=== PATIENT | female | born 1980 | race Caucasian/White ===

== ENCOUNTER 2017-08-18 14:53 | Inpatient (IN) | payer OTHER ==
[~2017-08-18] VITALS: Ht 170.2 cm; Wt 66.0 kg
[~2017-08-18 14:53] MED LIST: OXYC-360 PO; PREN0.01 PO
[2017-08-18 15:07] VITALS: BP 134/86; PULSE 80; RESP 16; TEMP 98.4; O2SAT 100
[2017-08-18] MEDS ORDERED: SODIUM CHLOR 0.9% 1000 ML INJ 1,000 ML IV SCH (15:30)
[2017-08-18] MEDS ORDERED: SODIUM CHLORIDE 0.9% FLUSH 10 ML FLUSH IV FLUSH PRN (15:30)
[2017-08-18] MEDS ORDERED: FAMOTIDINE 20 MG/2 ML VIAL IV PUSH ONE (15:30)
[2017-08-18] MEDS ORDERED: ONDANSETRON HCL 4 MG/2 ML VIAL IVP ONE (15:30)
--- NOTE | 2017-08-18 15:36 | PD ---
HPI Chief Complaint: Abdominal Pain Time Seen by Provider: 15:27 Travel History International Travel<30 days: No Contact w/Intl Traveler<30days: No Traveled to known affect area: No History of Present Illness HPI 36 years old female complains of right upper quadrant abdominal pain with nausea vomiting. Patient states that she has intermittent symptoms for the past several months. Patient states the pain is worse today. Patient denies any fever chills. Patient denies any coughing congestion. Patient denies any dysuria or frequency. Patient denies any vaginal discharge or bleeding. Patient denies any chance of being . [facility] Past Medical History Medical History: Denies Significant Hx Tetanus Vaccination: Unknown Influenza Vaccination: Yes ?: Not Past Surgical History Surgical History: No Previous Surgery Social History Alcohol Use: No Tobacco Use: No Substance Use: No Allergies-Medications (Allergen,Severity, Reaction): Coded Allergies: No Known Allergies (Verified , 08/18/17) Reported Meds & Prescriptions Reported Meds & Active Scripts Active No Active Prescriptions or Reported Medications Review of Systems General / Constitutional: No: Fever Eyes: No: Visual changes HENT: No: Headaches Cardiovascular: No: Chest Pain or Discomfort Respiratory: No: Shortness of Breath Gastrointestinal: Positive: Nausea, Vomiting, Abdominal Pain Genitourinary: No: Dysuria Musculoskeletal: No: Pain Skin: No Rash Neurologic: No: Weakness Psychiatric: No: Depression Endocrine: No: Polydipsia Hematologic/Lymphatic: No: Easy Bruising Physical Exam Narrative GENERAL: Well-nourished, well-developed patient. SKIN: Focused skin assessment warm/dry. HEAD: Normocephalic. EYES: No scleral icterus. No injection or drainage. NECK: Supple, trachea midline. No JVD or lymphadenopathy. CARDIOVASCULAR: Regular rate and rhythm without murmurs, gallops, or rubs. RESPIRATORY: Breath sounds equal bilaterally. No accessory muscle use. GASTROINTESTINAL: Abdomen soft, nondistended. Patient has moderate tenderness on palpation right upper quadrant of the abdomen. No rebound tenderness. No mass. MUSCULOSKELETAL: No cyanosis, or edema. BACK: Nontender without obvious deformity. No CVA tenderness. Neurologic exam normal. Data Data Last Documented VS Vital Signs Date Time Temp Pulse Resp B/P (MAP) Pulse Ox O2 Delivery O2 Flow Rate FiO2 08/18/17 15:07 98.4 80 16 134/86 (102) 100 Room Air Orders Orders Complete Blood Count With Diff (08/18/17 15:30) Comprehensive Metabolic Panel (08/18/17 15:30) Lipase (08/18/17 15:30) Prothrombin Time / Inr (Pt) (08/18/17 15:30) Act Partial Throm Time (Ptt) (08/18/17 15:30) Urinalysis - C+S If Indicated (08/18/17 15:30) Us Abdomen Gallbladder (08/18/17 ) Iv Access Insert/Monitor (08/18/17 15:30) Ecg Monitoring (08/18/17 15:30) Oximetry (08/18/17 15:30) Ondansetron Inj (Zofran Inj) (08/18/17 15:30) Sodium Chlor 0.9% 1000 Ml Inj (Ns 1000 M (08/18/17 15:30) Sodium Chloride 0.9% Flush (Ns Flush) (08/18/17 15:30) Famotidine Inj (Pepcid Inj) (08/18/17 15:30) Ed Urine Pregnancytest Poc (08/18/17 15:30) Morphine Inj (Morphine Inj) (08/18/17 16:00) Mri Mrcp W & W/O Contrast (08/18/17 ) Piperacil-Tazo 3.375 Gm Premix (Zosyn 3. (08/18/17 17:30) Labs Laboratory Tests Test 08/18/17 15:30 White Blood Count 11.2 TH/MM3 Red Blood Count 4.54 MIL/MM3 Hemoglobin 14.1 GM/DL Hematocrit 41.5 % Mean Corpuscular Volume 91.3 FL Mean Corpuscular Hemoglobin 31.0 PG Mean Corpuscular Hemoglobin Concent 34.0 % Red Cell Distribution Width 12.3 % Platelet Count 234 TH/MM3 Mean Platelet Volume 8.8 FL Neutrophils (%) (Auto) 80.7 % Lymphocytes (%) (Auto) 13.4 % Monocytes (%) (Auto) 4.6 % Eosinophils (%) (Auto) 0.8 % Basophils (%) (Auto) 0.5 % Neutrophils # (Auto) 9.1 TH/MM3 Lymphocytes # (Auto) 1.5 TH/MM3 Monocytes # (Auto) 0.5 TH/MM3 Eosinophils # (Auto) 0.1 TH/MM3 Basophils # (Auto) 0.1 TH/MM3 CBC Comment DIFF FINAL Differential Comment Prothrombin Time 10.3 SEC Prothromb Time International Ratio 0.9 RATIO Activated Partial Thromboplast Time 25.8 SEC Urine Color YELLOW Urine Turbidity CLEAR Urine pH 7.0 Urine Specific [place] 1.022 Urine Protein TRACE mg/dL Urine Glucose (UA) NEG mg/dL Urine Ketones 10 mg/dL Urine Occult Blood TRACE Urine Nitrite NEG Urine Bilirubin NEG Urine Urobilinogen LESS THAN 2.0 MG/DL Urine Leukocyte Esterase NEG Urine RBC 7 /hpf Urine WBC LESS THAN 1 /hpf Urine Squamous Epithelial Cells <1 /hpf Urine Bacteria RARE /hpf Urine Mucus FEW /lpf Microscopic Urinalysis Comment CULT NOT INDICATED Blood Urea Nitrogen 10 MG/DL Creatinine 0.72 MG/DL Random Glucose 87 MG/DL Total Protein 8.4 GM/DL Albumin 4.4 GM/DL Calcium Level 8.8 MG/DL Alkaline Phosphatase 84 U/L Aspartate Amino Transf (AST/SGOT) 13 U/L Alanine Aminotransferase (ALT/SGPT) 25 U/L Total Bilirubin 0.3 MG/DL Sodium Level 137 MEQ/L Potassium Level 3.7 MEQ/L Chloride Level 105 MEQ/L Carbon Dioxide Level 23.0 MEQ/L Anion Gap 9 MEQ/L Estimat Glomerular Filtration Rate 92 ML/MIN Lipase 112 U/L [facility] Medical Decision Making Medical Screen Exam Complete: Yes Emergency Medical Condition: Yes Interpretation(s) Last Impressions Gall Bladder Ultrasound 08/18/17 0000 Signed Impressions: Service Date/Time: Friday, August 18, 2017 15:31 - CONCLUSION: 1. Gallbladder sludge and cholelithiasis with slightly thickened gallbladder wall and mildly distended common bile duct. No definite choledocholithiasis or intrahepatic ductal dilatation. Differential considerations include ampullary dysfunction versus early partial distal CBD obstruction. Consider HIDA scan to evaluate for cystic and common bile duct patency as clinically indicated. 2. Very mild hepatomegaly. Nino Soares MD 1713 p.m. CBC WBC 11.2. 80 neutrophil. CMP within normal limit. UA negative. Differential Diagnosis Differential diagnosis including cholecystitis, cholangitis, pyelonephritis, nephrolithiasis, colitis. Narrative Course 36 years old female with right upper quadrant abdominal pain and nausea vomiting. Normal saline solution 1 25 cc an hour. Pepcid 20 mg IV. Morphine 1 mg IV. Zofran 4 mg IV. Zosyn 3.375 g IV given. MRCP pending. Diagnosis Primary Impression: Common bile duct obstruction Scripts No Active Prescriptions or Reported Meds Everardo Dover MD Aug 18, 2017 15:36
[2017-08-18 15:58] LABS: AUTOMATED NEUTROPHIL # 9.1 TH/MM3 (1.8-7.7); BASOPHIL # 0.1 TH/MM3 (0-0.2); BASOPHIL % 0.5 % (0.0-2.0); EOSINOPHIL # 0.1 TH/MM3 (0-0.4); EOSINOPHIL % 0.8 % (0.0-4.0); HEMATOCRIT 41.5 % (35.0-46.0); HEMO FLAGS DIFF FINAL; LYMPH % 13.4 % (9.0-44.0); LYMPHOCYTE # 1.5 TH/MM3 (1.0-4.8); MEAN CELL VOLUME 91.3 FL (80.0-100.0); MONO % 4.6 % (0.0-8.0); NEUT % 80.7 % (16.0-70.0); PLATELET COUNT 234 TH/MM3 (150-450); RED BLOOD COUNT 4.54 MIL/MM3 (4.00-5.30); RED CELL DISTRIBUTION WIDTH 12.3 % (11.6-17.2); WHITE BLOOD COUNT 11.2 TH/MM3 (4.0-11.0)
[2017-08-18] MEDS ORDERED: MORPHINE SULFATE 2 MG/ML INJ IV PUSH ONE (16:00)
[2017-08-18 16:03] LABS: BACTERIA, URINE RARE /hpf; BLOOD, URINE TRACE (NEG); COMMENT (UR) CULT NOT INDICATED; CULTURE IF INDICATED CULT NOT INDICATED; GLUCOSE,URINE NEG (NEG); KETONE, URINE 10 mg/dL (NEG); MUCUS URINE FEW /lpf (OCC); NITRITE,URINE NEG (NEG); SQUAMOUS EPITHELIAL CELL URINE <1 /hpf (0-5); URINE COLOR YELLOW (YELLW/STRAW)
[2017-08-18 16:04] LABS: APTT (PATIENT) 25.8 SEC (24.3-30.1); INTERNATIONAL NORMALIZED RATIO 0.9 RATIO; PROTHROMBIN TIME - PATIENT 10.3 SEC (9.8-11.6)
[2017-08-18 16:14] LABS: ALT (GPT) 25 U/L (10-53); ANION GAP 9 MEQ/L (5-15); AST (GOT) 13 U/L (15-37); BLOOD UREA NITROGEN 10 MG/DL (7-18); CHLORIDE 105 MEQ/L (98-107); GLOMERULAR FILTRATION RATE 92 ML/MIN (>89); POTASSIUM 3.7 MEQ/L (3.5-5.1); SODIUM (NA) 137 MEQ/L (136-145)
[2017-08-18 16:16] LABS: ALKALINE PHOSPHATASE 84 U/L (45-117); TOTAL BILIRUBIN ADULT 0.3 MG/DL (0.2-1.0)
--- NOTE | 2017-08-18 16:17 | RADRPT ---
EXAM DATE/TIME: 08/18/2017 15:31 [facility] COMPARISON: No previous studies available for comparison. INDICATIONS : Right upper quadrant pain. MEDICAL HISTORY : Nausea. Vomiting. Abdominal pain. SURGICAL HISTORY : None. ENCOUNTER: Initial ACUITY: 3 months PAIN SCORE: 7/10 LOCATION: Right upper quadrant MEASUREMENTS: LIVER: 17.1 cm length COMMON DUCT: 8 mm RIGHT KIDNEY: 11.3 x 5.5 x 4.7 cm FINDINGS: LIVER: Slightly enlarged measuring up to 17 cm. Normal echotexture without focal lesion or ductal dilatation. COMMON DUCT: Enlarged with no definite intraluminal mass or stone visualized. GALLBLADDER: Small bowel sludge and a single 1.6 cm non-mobile gallstone noted in the fundus of the gallbladder. There is subtle gallbladder wall thickening measuring 3 mm. No sonographic Laurence y sign or pericholecystic fluid. PANCREAS: The visualized portions are within normal limits. RIGHT KIDNEY: No evidence of hydronephrosis, stone, or mass. CONCLUSION: 1. Gallbladder sludge and cholelithiasis with slightly thickened gallbladder wall and mildly distende d common bile duct. No definite choledocholithiasis or intrahepatic ductal dilatation. Differential c onsiderations include ampullary dysfunction versus early partial distal CBD obstruction. Consider HID A scan to evaluate for cystic and common bile duct patency as clinically indicated. 2. Very mild hepatomegaly. Nino Soares MD on August 18, 2017 at 16:09 Board Certified Radiologist. This report was verified electronically.
[2017-08-18] MEDS ORDERED: PIPERACIL-TAZO 3.375 GM PREMIX 50 ML IV ONE (17:30)
[2017-08-18 17:53] VITALS: BP_SYST 102; BP_DIAS 62; BP_DIAS 64; PULSE 68; RESP 15; O2SAT 100; O2SAT 99
--- NOTE | 2017-08-18 17:59 | HHI.HP ---
[facility] Primary [facility] Physician No Primary Care Physician Admission Diagnosis common bile duct obstruction Diagnoses: (1) Common bile duct obstruction Diagnosis: Principal Chief Complaint: abdominal pain Travel History International Travel<30 Days: No Contact w/Intl Traveler <30 Da: No Traveled to Known Affected Are: No History of Present Illness patient is a 36 y/o female with no significant past medical history who presented to ER with abdominal pain. she says that she's had on and off abdominal pain for the past two months. pain is in epigastric/ RUQ. she says that she noticed that the pain was worse with ' the fast foods'. pain was moderate in intensity and associated with some nausea or vomiting. no reported fever. Review of Systems Constitutional: DENIES: Fever, Weight loss, Chills, Night Sweats Eyes: DENIES: Blurred vision, Diplopia, Vision loss, Double Vision Ears, nose, mouth, throat: DENIES: Tinnitus, Vertigo, Throat pain, Epistaxis Respiratory: DENIES: Apneas, Cough, Snoring, Wheezing, Hemoptysis, Sputum production, Shortness of breath Cardiovascular: DENIES: Chest pain, Palpitations, Syncope, Dyspnea on Exertion , PND, Lower Extremity Edema, Orthopnea, Claudication Gastrointestinal: COMPLAINS OF: Abdominal pain, Nausea, Vomiting, DENIES: Black stools, Bloody stools, Constipation, Diarrhea, Difficulty Swallowing, Anorexia Genitourinary: DENIES: Urinary frequency, Urgency, Hematuria, Dysuria Musculoskeletal: DENIES: Joint pain, Muscle aches, Stiffness, Joint Swelling Integumentary: DENIES: Rash Neurologic: DENIES: Abnormal gait, Headache, Localized weakness, Paresthesias, Seizures, Speech Problems, Tremor, Poor Balance Psychiatric: DENIES: Anxiety, Confusion, Mood changes, Depression, Hallucinations, Agitation, Suicidal Ideation, Homicidal Ideation, Delusions Past Family Social History Past Medical History not significant. Past Surgical History none. Reported Medications none reported. Allergies: Coded Allergies: No Known Allergies (Verified , 08/18/17) Active Ordered Medications Current Medications Ondansetron HCl (Zofran Inj) 4 mg ONCE ONCE IVP Last administered on 16:05; Start 08/18/17 at 15:30; Stop 08/18/17 at 15:31; Status DC Sodium Chloride 1,000 ml @ 125 mls/hr Q8H IV Last administered on 08/18/17 16 :04; Start 08/18/17 at 15:30; Stop 08/18/17 at 23:29 Sodium Chloride (NS Flush) 2 ml UNSCH PRN IV FLUSH FLUSH AFTER USING IV ACCESS Last administered on 08/18/17 16:05; Start 08/18/17 at 15:30 Famotidine (Pepcid Inj) 20 mg ONCE ONCE IV PUSH Last administered on 16:04; Start 08/18/17 at 15:30; Stop 08/18/17 at 15:32; Status DC Morphine Sulfate (Morphine Inj) 1 mg ONCE ONCE IV PUSH Last administered on 16:05; Start 08/18/17 at 16:00; Stop 08/18/17 at 16:01; Status DC Piperacillin Sod/ Tazobactam Sod 50 ml @ 100 mls/hr ONCE ONCE IV Last administered on 08/18/17 17:45; Start 08/18/17 at 17:30; Stop 08/18/17 at 17:59 Family History not relevant to this presentation. Social History no smoking or drinking. Physical Exam Vital Signs Vital Signs Date Time Temp Pulse Resp B/P (MAP) Pulse Ox O2 Delivery O2 Flow Rate FiO2 08/18/17 15:07 98.4 80 16 134/86 (102) 100 Room Air Physical Exam GENERAL: This is a well-nourished, well-developed patient, in no apparent distress. SKIN: No rashes, ecchymoses or lesions. Cool and dry. HEAD: Atraumatic. Normocephalic. No temporal or scalp tenderness. EYES: Pupils equal round and reactive. Extraocular motions intact. No scleral icterus. No injection or drainage. ENT: Nose without bleeding, purulent drainage or septal hematoma. Throat without erythema, tonsillar hypertrophy or exudate. Uvula midline. Airway patent. NECK: Trachea midline. No JVD or lymphadenopathy. Supple, nontender, no meningeal signs. CARDIOVASCULAR: Regular rate and rhythm without murmurs, gallops, or rubs. RESPIRATORY: Clear to auscultation. Breath sounds equal bilaterally. No wheezes , rales, or rhonchi. GASTROINTESTINAL: Abdomen soft, mild RUQ tenderness, nondistended. No hepato- splenomegaly, or palpable masses. No guarding. MUSCULOSKELETAL: Extremities without clubbing, cyanosis, or edema. No joint tenderness, effusion, or edema noted. No calf tenderness. Negative Homans sign bilaterally. NEUROLOGICAL: Awake and alert. Cranial nerves II through XII intact. Motor and sensory grossly within normal limits. Five out of 5 muscle strength in all muscle groups. Normal speech. Laboratory Laboratory Tests Test 08/18/17 15:30 White Blood Count 11.2 Red Blood Count 4.54 Hemoglobin 14.1 Hematocrit 41.5 Mean Corpuscular Volume 91.3 Mean Corpuscular Hemoglobin 31.0 Mean Corpuscular Hemoglobin Concent 34.0 Red Cell Distribution Width 12.3 Platelet Count 234 Mean Platelet Volume 8.8 Neutrophils (%) (Auto) 80.7 Lymphocytes (%) (Auto) 13.4 Monocytes (%) (Auto) 4.6 Eosinophils (%) (Auto) 0.8 Basophils (%) (Auto) 0.5 Neutrophils # (Auto) 9.1 Lymphocytes # (Auto) 1.5 Monocytes # (Auto) 0.5 Eosinophils # (Auto) 0.1 Basophils # (Auto) 0.1 CBC Comment DIFF FINAL Differential Comment Prothrombin Time 10.3 Prothromb Time International Ratio 0.9 Activated Partial Thromboplast Time 25.8 Urine Color YELLOW Urine Turbidity CLEAR Urine pH 7.0 Urine Specific [place] 1.022 Urine Protein TRACE Urine Glucose (UA) NEG Urine Ketones 10 Urine Occult Blood TRACE Urine Nitrite NEG Urine Bilirubin NEG Urine Urobilinogen LESS THAN 2.0 Urine Leukocyte Esterase NEG Urine RBC 7 Urine WBC LESS THAN 1 Urine Squamous Epithelial Cells <1 Urine Bacteria RARE Urine Mucus FEW Microscopic Urinalysis Comment CULT NOT INDICATED Blood Urea Nitrogen 10 Creatinine 0.72 Random Glucose 87 Total Protein 8.4 Albumin 4.4 Calcium Level 8.8 Alkaline Phosphatase 84 Aspartate Amino Transf (AST/SGOT) 13 Alanine Aminotransferase (ALT/SGPT) 25 Total Bilirubin 0.3 Sodium Level 137 Potassium Level 3.7 Chloride Level 105 Carbon Dioxide Level 23.0 Anion Gap 9 Estimat Glomerular Filtration Rate 92 Lipase 112 Result Diagram: 08/18/17 1530 08/18/17 1530 Imaging Last Impressions Gall Bladder Ultrasound 08/18/17 0000 Signed Impressions: Service Date/Time: Friday, August 18, 2017 15:31 - CONCLUSION: 1. Gallbladder sludge and cholelithiasis with slightly thickened gallbladder wall and mildly distended common bile duct. No definite choledocholithiasis or intrahepatic ductal dilatation. Differential considerations include ampullary dysfunction versus early partial distal CBD obstruction. Consider HIDA scan to evaluate for cystic and common bile duct patency as clinically indicated. 2. Very mild hepatomegaly. MD Law Girard VTE Risk Assessment Caprini VTE Risk Assessment: Mod/High Risk (score >= 2) (awaiting surgery evaluation.) Caprini Risk Assessment Model Point Value = 1 Point Value = 2 Point Value = 3 Point Value = 5 Age 41-60 Minor surgery BMI > 25 kg/m2 Swollen legs Varicose veins or History of unexplained or recurrent spontaneous Oral contraceptives or hormone replacement Sepsis (< 1 month) Serious lung disease, including pneumonia (< 1 month) Abnormal pulmonary function Acute myocardial infarction Congestive heart failure (< 1 month) History of inflammatory bowel disease Medical patient at bed rest Age 61-74 Arthroscopic surgery Major open surgery (> 45 min) Laparoscopic surgery (> 45 min) Malignancy Confined to bed (> 72 hours) Immobilizing plaster cast Central venous access Age >= 75 History of VTE Family history of VTE Factor V Leiden Prothrombin [id number] Lupus anticoagulant Anticardiolipin antibodies Elevated serum homocysteine Heparin-induced thrombocytopenia Other congenital or acquired thrombophilia Stroke (< 1 month) Elective arthroplasty Hip, pelvis, or leg fracture Acute spinal cord injury (< 1 month) Prophylaxis Regimen Total Risk Factor Score Risk Level Prophylaxis Regimen 0-1 Low Early ambulation 2 Moderate Order ONE of the following: *Sequential Compression Device (SCD) *Heparin 5000 units SQ BID 3-4 Higher Order ONE of the following medications: *Heparin 5000 units SQ TID *Enoxaparin/Lovenox 40 mg SQ daily (WT < 150 kg, CrCl > 30 mL/min) *Enoxaparin/Lovenox 30 mg SQ daily (WT < 150 kg, CrCl > 10-29 mL/min) *Enoxaparin/Lovenox 30 mg SQ BID (WT < 150 kg, CrCl > 30 mL/min) AND/OR *Sequential Compression Device (SCD) 5 or more Highest Order ONE of the following medications: *Heparin 5000 units SQ TID (Preferred with Epidurals) *Enoxaparin/Lovenox 40 mg SQ daily (WT < 150 kg, CrCl > 30 mL/min) *Enoxaparin/Lovenox 30 mg SQ daily (WT < 150 kg, CrCl > 10-29 mL/min) *Enoxaparin/Lovenox 30 mg SQ BID (WT < 150 kg, CrCl > 30 mL/min) AND *Sequential Compression Device (SCD) Assessment and Plan Assessment and Plan A/P - cholelithiasis with mildly distended common bile duct keep NPO for now and start on IV fluid- pain control and antiemetics as needed. will obtain MRCP and consult GI and general surgery. -DVT prophylaxis pending GI and surgery evaluation. Discussed Condition With ER physician and the patient. Physician Certification 2 Midnight Certification Type: Admission for Inpatient Services Order for Inpatient Services The services are ordered in accordance with Medicare regulations or non- Medicare payer requirements, as applicable. In the case of services not specified as inpatient-only, they are appropriately provided as inpatient services in accordance with the 2-midnight benchmark. Estimated LOS (days): 2 days is the estimated time the patient will need to remain in the hospital, assuming treatment plan goals are met and no additional complications. Post-Hospital Plan: Home Physician Certification 2 Midnight Certification Type: Admission for Inpatient Services Order for Inpatient Services The services are ordered in accordance with Medicare regulations or non- Medicare payer requirements, as applicable. In the case of services not specified as inpatient-only, they are appropriately provided as inpatient services in accordance with the 2-midnight benchmark. Estimated LOS (days): 2 days is the estimated time the patient will need to remain in the hospital, assuming treatment plan goals are met and no additional complications. Post-Hospital Plan: Home Jake Tamez MD Aug 18, 2017 17:59
[2017-08-18] MEDS ORDERED: ONDANSETRON HCL 4 MG/2 ML VIAL IV PUSH PRN (18:00)
[2017-08-18] MEDS ORDERED: HYDROmorphone HCL PF 1 MG/ML VIAL IV PUSH PRN (18:00)
[2017-08-18] MEDS ORDERED: MORPHINE SULFATE 2 MG/ML INJ IV PUSH PRN (18:45)
[2017-08-18] MEDS: SODIUM CHLOR 0.9% 1000 ML INJ 1,000 ML IV SCH (19:04)
--- NOTE | 2017-08-18 19:10 | RADRPT ---
EXAM DATE/TIME: 08/18/2017 18:06 [facility] COMPARISON: No previous studies available for comparison. INDICATIONS : Obstruction. Nausea and vomiting. MEDICAL HISTORY : None. SURGICAL HISTORY : None. ENCOUNTER: Subsequent ACUITY: 1 day PAIN SCORE: 7/10 LOCATION: Abdomen. TECHNIQUE: Multiplanar, multisequence magnetic resonance imaging of the abdomen was performed. High-resolution 3D dataset was utilized to reconstruct maximum-intensity projection (MIP) images. FINDINGS: The liver and spleen are normal in size and no focal defects are identified. There are multiple stone s within the gallbladder without wall thickening or pericholecystic fluid the largest measuring 15 mm . No common duct stones are identified. The pancreatic duct appears normal. The adrenal glands and ki dneys appear normal bilaterally. No hydronephrosis or mass lesions are identified. No abnormally enla rged lymph nodes are identified. CONCLUSION: 1. Cholelithiasis without common duct obstruction Josse Mac MD on August 18, 2017 at 18:59 Board Certified Radiologist. This report was verified electronically.
[2017-08-18 20:24] VITALS: BP 109/65; PULSE 69; RESP 18; TEMP 98.6; O2SAT 97
--- NOTE | 2017-08-18 20:43 | PD.CONS ---
HPI Service General surgery Consult Requested By Dr. Dover Reason for Consult Possible cholecystitis Primary Care Physician No Primary Care Physician History of Present Illness The patient is a 36-year-old female with a three-month history of recurring right upper quadrant pain who presented with more severe right upper quadrant pain since this morning. Her most recent episode before that was last weekend She had nausea and emesis. White blood count was noted to be 11,000 with normal LFTs. Ultrasound of the gallbladder showed sludge in size with mild wall thickening and mildly dilated common bile duct. MRCP was performed which showed gallstones but no choledocholithiasis. No previous abdominal surgeries. Review of Systems Constitutional: DENIES: Fever, Chills Eyes: DENIES: Eye inflammation, Eye pain Respiratory: DENIES: Cough, Shortness of breath Cardiovascular: DENIES: Chest pain, Palpitations Gastrointestinal: COMPLAINS OF: Abdominal pain, Nausea, Vomiting Musculoskeletal: DENIES: Stiffness, Joint Swelling Integumentary: DENIES: Pruritus, Rash Neurologic: DENIES: Localized weakness, Seizures Past Family Social History Past Medical History None Past Surgical History None Reported Medications Reported Meds & Active Scripts Active No Active Prescriptions or Reported Medications Allergies: Coded Allergies: No Known Allergies (Verified , 08/18/17) Active Ordered Medications Current Medications Medications (Trade) Dose Ordered Sig/Josselyn Route Start Time Stop Time Status Last Admin (NS Flush) 2 ml UNSCH PRN IV FLUSH 08/18/17 15:30 08/18/17 16:05 (Zofran Inj) 4 mg Q8H PRN IV PUSH 08/18/17 18:00 Sodium Chloride 1,000 ml @ 100 mls/hr Q10H IV 08/18/17 18:00 08/18/17 19:04 (Dilaudid Pf Inj) 0.5 mg Q4H PRN IV PUSH 08/18/17 18:00 (Morphine Inj) 1 mg Q3H PRN IV PUSH 08/18/17 18:45 Family History Noncontributory Social History No alcohol tobacco or drug use. Physical Exam Vital Signs Vital Signs Date Time Temp Pulse Resp B/P (MAP) Pulse Ox O2 Delivery O2 Flow Rate FiO2 08/18/17 20:24 98.6 69 18 109/65 (80) 97 08/18/17 17:53 68 15 102/64 (77) 99 Room Air 08/18/17 17:53 68 15 102/62 (75) 100 Room Air 08/18/17 15:07 98.4 80 16 134/86 (102) 100 Room Air Physical Exam GENERAL: Awake and alert. No acute distress. Cooperative. HEAD: Normocephalic. Atraumatic. EYES: Pupils equal round and reactive to light bilaterally. No scleral icterus. ENT: Moist oral mucosa. NECK: Trachea midline. CHEST: Lungs clear to auscultation bilaterally with no wheezing or rhonchi. No respiratory distress. CARDIOVASCULAR: Regular rate and rhythm. ABDOMEN: Soft, nondistended. No previous scars. Moderate right upper quadrant tenderness to palpation. Negative Jackson sign. EXTREMITIES: No cyanosis or edema. SKIN: Warm, dry, nonjaundiced. Laboratory Laboratory Tests Test 08/18/17 15:30 White Blood Count 11.2 Red Blood Count 4.54 Hemoglobin 14.1 Hematocrit 41.5 Mean Corpuscular Volume 91.3 Mean Corpuscular Hemoglobin 31.0 Mean Corpuscular Hemoglobin Concent 34.0 Red Cell Distribution Width 12.3 Platelet Count 234 Mean Platelet Volume 8.8 Neutrophils (%) (Auto) 80.7 Lymphocytes (%) (Auto) 13.4 Monocytes (%) (Auto) 4.6 Eosinophils (%) (Auto) 0.8 Basophils (%) (Auto) 0.5 Neutrophils # (Auto) 9.1 Lymphocytes # (Auto) 1.5 Monocytes # (Auto) 0.5 Eosinophils # (Auto) 0.1 Basophils # (Auto) 0.1 CBC Comment DIFF FINAL Differential Comment Prothrombin Time 10.3 Prothromb Time International Ratio 0.9 Activated Partial Thromboplast Time 25.8 Urine Color YELLOW Urine Turbidity CLEAR Urine pH 7.0 Urine Specific [place] 1.022 Urine Protein TRACE Urine Glucose (UA) NEG Urine Ketones 10 Urine Occult Blood TRACE Urine Nitrite NEG Urine Bilirubin NEG Urine Urobilinogen LESS THAN 2.0 Urine Leukocyte Esterase NEG Urine RBC 7 Urine WBC LESS THAN 1 Urine Squamous Epithelial Cells <1 Urine Bacteria RARE Urine Mucus FEW Microscopic Urinalysis Comment CULT NOT INDICATED Blood Urea Nitrogen 10 Creatinine 0.72 Random Glucose 87 Total Protein 8.4 Albumin 4.4 Calcium Level 8.8 Alkaline Phosphatase 84 Aspartate Amino Transf (AST/SGOT) 13 Alanine Aminotransferase (ALT/SGPT) 25 Total Bilirubin 0.3 Sodium Level 137 Potassium Level 3.7 Chloride Level 105 Carbon Dioxide Level 23.0 Anion Gap 9 Estimat Glomerular Filtration Rate 92 Lipase 112 Result Diagram: 08/18/17 1530 08/18/17 1530 Imaging Last Impressions Gall Bladder Ultrasound 08/18/17 0000 Signed Impressions: Service Date/Time: Friday, August 18, 2017 15:31 - CONCLUSION: 1. Gallbladder sludge and cholelithiasis with slightly thickened gallbladder wall and mildly distended common bile duct. No definite choledocholithiasis or intrahepatic ductal dilatation. Differential considerations include ampullary dysfunction versus early partial distal CBD obstruction. Consider HIDA scan to evaluate for cystic and common bile duct patency as clinically indicated. 2. Very mild hepatomegaly. Nino Soares MD Assessment and Plan Assessment and Plan 36-year-old female with multiple episodes of recurring biliary colic now with biliary colic versus acute cholecystitis. I recommend to proceed to the operating room tomorrow for laparoscopic possible open cholecystectomy, possible IOC. Discussed risks benefits and details of procedure with the patient and her and she desires to proceed. Tesfaye Ruiz MD Aug 18, 2017 20:43
[2017-08-19 00:26] VITALS: BP 92/63; PULSE 74; RESP 18; TEMP 98.1; O2SAT 97
[2017-08-19] MEDS: PIPERACIL-TAZO 3.375 GM PREMIX 50 ML IV SCH ×3 (00:31→11:57)
[2017-08-19] MEDS ORDERED: LACTATED RINGER'S 1000 ML IV PRN (01:30)
[2017-08-19] MEDS ORDERED: CHLORHEXIDINE GLUCONATE 2 % 1 PACK (2 CLOTHS) TOPICAL PRN (01:30)
[2017-08-19] MEDS: SODIUM CHLOR 0.9% 1000 ML INJ 1,000 ML IV SCH ×3 (04:00→17:00)
[2017-08-19 04:53] VITALS: BP 96/52; PULSE 66; RESP 18; TEMP 98.6; O2SAT 96
[2017-08-19 08:00] VITALS: BP 90/55; PULSE 60; RESP 17; TEMP 98.4; O2SAT 97
--- NOTE | 2017-08-19 08:22 | HHI.PR ---
Subjective Remarks in no distress. abdominal pain is better. no nausea/vomiting. no fever. awaiting surgery. d/w the RN . Objective Vitals Vital Signs Date Time Temp Pulse Resp B/P (MAP) Pulse Ox O2 Delivery O2 Flow Rate FiO2 08/19/17 04:53 98.6 66 18 96/52 (67) 96 08/19/17 02:34 18 08/19/17 00:26 98.1 74 18 92/63 (73) 97 08/18/17 20:24 98.6 69 18 109/65 (80) 97 08/18/17 17:53 68 15 102/64 (77) 99 Room Air 08/18/17 17:53 68 15 102/62 (75) 100 Room Air 08/18/17 15:07 98.4 80 16 134/86 (102) 100 Room Air I/O 08/18/17 08/18/17 08/18/17 08/19/17 08/19/17 08/19/17 06:59 14:59 22:59 06:59 14:59 22:59 Intake Total 1050 ml 1100 ml Balance 1050 ml 1100 ml Intake IV Total 1050 ml 1100 ml # Voids 3 Result Diagram: 08/18/17 1530 08/18/17 1530 Imaging Last Impressions Gall Bladder Ultrasound 08/18/17 0000 Signed Impressions: Service Date/Time: Friday, August 18, 2017 15:31 - CONCLUSION: 1. Gallbladder sludge and cholelithiasis with slightly thickened gallbladder wall and mildly distended common bile duct. No definite choledocholithiasis or intrahepatic ductal dilatation. Differential considerations include ampullary dysfunction versus early partial distal CBD obstruction. Consider HIDA scan to evaluate for cystic and common bile duct patency as clinically indicated. 2. Very mild hepatomegaly. Nino Soares MD Cholangiopancreatography MRI 08/18/17 0000 Signed Impressions: Service Date/Time: Friday, August 18, 2017 18:06 - CONCLUSION: 1. Cholelithiasis without common duct obstruction Josse Mac MD Objective Remarks GENERAL: This is a well-nourished, well-developed patient, in no apparent distress. CARDIOVASCULAR: Regular rate and regular rhythm without murmurs, gallops, or rubs. RESPIRATORY: Clear to auscultation. Breath sounds equal bilaterally. No wheezes , rales, or rhonchi. GASTROINTESTINAL: Abdomen soft, minimal RUQ tenderness, nondistended. Normal, active bowel sounds MUSCULOSKELETAL: Extremities without clubbing, cyanosis, or edema. NEURO: Alert & Oriented x4 to person, place, time, situation. Moves all ext x4 Medications and IVs Current Medications Ondansetron HCl (Zofran Inj) 4 mg ONCE ONCE IVP Last administered on 16:05; Start 08/18/17 at 15:30; Stop 08/18/17 at 15:31; Status DC Sodium Chloride 1,000 ml @ 125 mls/hr Q8H IV Last administered on 08/18/17 16 :04; Start 08/18/17 at 15:30; Stop 08/18/17 at 18:10; Status DC Sodium Chloride (NS Flush) 2 ml UNSCH PRN IV FLUSH FLUSH AFTER USING IV ACCESS Last administered on 08/18/17 16:05; Start 08/18/17 at 15:30 Famotidine (Pepcid Inj) 20 mg ONCE ONCE IV PUSH Last administered on 16:04; Start 08/18/17 at 15:30; Stop 08/18/17 at 15:32; Status DC Morphine Sulfate (Morphine Inj) 1 mg ONCE ONCE IV PUSH Last administered on 16:05; Start 08/18/17 at 16:00; Stop 08/18/17 at 16:01; Status DC Piperacillin Sod/ Tazobactam Sod 50 ml @ 100 mls/hr ONCE ONCE IV Last administered on 08/18/17 17:45; Start 08/18/17 at 17:30; Stop 08/18/17 at 17:59 ; Status DC Ondansetron HCl (Zofran Inj) 4 mg Q8H PRN IV PUSH NAUSEA; Start 08/18/17 at 18: 00 Sodium Chloride 1,000 ml @ 100 mls/hr Q10H IV Last administered on 08/19/17 04:00; Start 08/18/17 at 18:00 Hydromorphone HCl (Dilaudid Pf Inj) 0.5 mg Q4H PRN IV PUSH PAIN 1-10; Start at 18:00 Morphine Sulfate (Morphine Inj) 1 mg Q3H PRN IV PUSH PAIN Last administered on 08/19/17 02:29; Start 08/18/17 at 18:45 Piperacillin Sod/ Tazobactam Sod 50 ml @ 100 mls/hr Q6H IV Last administered on 08/19/17 05:56; Start 08/19/17 at 00:00 Lactated Ringer's 1,000 ml @ 30 mls/hr Q24H PRN IV SEE LABEL COMMENTS; Start 08/19/17 at 01:30; Stop 08/22/17 at 01:29 Chlorhexidine Gluconate (Chlorhexidine 2% Cloth) 3 pack PATIENT MONITOR PRN TOPICAL SEE LABEL COMMENTS; Start 08/19/17 at 01:30; Stop 08/22/17 at 01:29 A/P Problem List: (1) Common bile duct obstruction ICD Code: K83.1 - Obstruction of bile duct Status: Acute Assessment and Plan A/P - cholelithiasis- MRCP with no common duct obstruction. continue pain control and antiemetics as needed. surgery and GI consulted. plan for cholecystectomy today. -DVT prophylaxis pending surgical intervention. Discharge Planning when cleared by surgery- for cholecystectomy today. Jake Tamez MD Aug 19, 2017 08:22
--- NOTE | 2017-08-19 09:01 | PD.CONS ---
HPI History of Present Illness This is a 36 year old female who has been having intermittent abdominal pain for the past several months. Initially, her episodes were infrequent and usually occurred when she was on vacation, eating more fatty foods than normal. Usually, she can induce vomiting and her symptoms would completely resolve. However, the episodes have gradually been increasing in intensity and frequency. The night before last, she had a steak dinner with grilled vegetables. She woke up early yesterday morning with severe RUQ pain- a constant dull ache with associated bloating. She had several episodes of vomiting, but did not have any relief with her abdominal pain. She denies any fevers or chills, jaundice. Usually she will have loose stool associated with her RUQ pain, but states she did not have it this time. Gallbladder US (08/18/17 )----> Gallbladder sludge and cholelithiasis with slightly thickened gallbladder wall and mildly distended common bjile duct. No definite choledocholithiasis or intrahepatic ductal dilatation. Differential considerations include ampullary dysfunction versus early partial distal CBD obstruction. Consider HIDA scan to evaluate for cystic and common bile duct patency as clinically indicated. Very mild hepatomegaly. LFTs are normal. GI was consulted for further evaluation. MRCP (08/18/17)----> Cholelithiasis without common duct obstruction. (Sangeetha Espinal) PFSH Past Medical History Denies Past Surgical History Denies (Sangeetha Espinal) Coded Allergies: No Known Allergies (Verified , 08/18/17) Medications Allergies Coded Allergies Type Severity Reaction Last Updated Verified No Known Allergies 08/18/17 Yes Active Scripts Medications Dose Route/Sig Max Daily Dose Days Date Category No Active Prescriptions or Reported Medications Rx Family History Noncontributory Social History Quit smoking 2 years ago Occasional ETOH (Sangeetha Espinal) Review of Systems Constitutional: DENIES: Fatigue, Fever, Weight loss, Chills Respiratory: DENIES: Cough Cardiovascular: DENIES: Chest pain Gastrointestinal: COMPLAINS OF: Abdominal pain, Nausea, Vomiting, DENIES: Black stools, Bloody stools, Constipation, Diarrhea, Difficulty Swallowing, Anorexia, Swelling of Abdomen, Hematemesis Musculoskeletal: DENIES: Back pain Integumentary: DENIES: Rash, Jaundice Hematologic/lymphatic: DENIES: Bruising Neurologic: DENIES: Headache Psychiatric: DENIES: Confusion (Sangeetha Espinal) GI Exam Vitals I&O Vital Signs Date Time Temp Pulse Resp B/P (MAP) Pulse Ox O2 Delivery O2 Flow Rate FiO2 08/19/17 08:00 98.4 60 17 90/55 (67) 97 08/19/17 04:53 98.6 66 18 96/52 (67) 96 08/19/17 02:34 18 08/19/17 00:26 98.1 74 18 92/63 (73) 97 08/18/17 20:24 98.6 69 18 109/65 (80) 97 08/18/17 17:53 68 15 102/64 (77) 99 Room Air 08/18/17 17:53 68 15 102/62 (75) 100 Room Air 08/18/17 15:07 98.4 80 16 134/86 (102) 100 Room Air I/O 08/18/17 08/18/17 08/18/17 08/19/17 08/19/17 08/19/17 07:00 15:00 23:00 07:00 15:00 23:00 Intake Total 1050 ml 1100 ml Balance 1050 ml 1100 ml Intake IV Total 1050 ml 1100 ml # Voids 3 Imaging Last Impressions Gall Bladder Ultrasound 08/18/17 0000 Signed Impressions: Service Date/Time: Friday, August 18, 2017 15:31 - CONCLUSION: 1. Gallbladder sludge and cholelithiasis with slightly thickened gallbladder wall and mildly distended common bile duct. No definite choledocholithiasis or intrahepatic ductal dilatation. Differential considerations include ampullary dysfunction versus early partial distal CBD obstruction. Consider HIDA scan to evaluate for cystic and common bile duct patency as clinically indicated. 2. Very mild hepatomegaly. Nino Soares MD Cholangiopancreatography MRI 08/18/17 0000 Signed Impressions: Service Date/Time: Friday, August 18, 2017 18:06 - CONCLUSION: 1. Cholelithiasis without common duct obstruction Josse Mac MD Laboratory Test 08/18/17 15:30 White Blood Count 11.2 TH/MM3 Red Blood Count 4.54 MIL/MM3 Hemoglobin 14.1 GM/DL Hematocrit 41.5 % Mean Corpuscular Volume 91.3 FL Mean Corpuscular Hemoglobin 31.0 PG Mean Corpuscular Hemoglobin Concent 34.0 % Red Cell Distribution Width 12.3 % Platelet Count 234 TH/MM3 Mean Platelet Volume 8.8 FL Neutrophils (%) (Auto) 80.7 % Lymphocytes (%) (Auto) 13.4 % Monocytes (%) (Auto) 4.6 % Eosinophils (%) (Auto) 0.8 % Basophils (%) (Auto) 0.5 % Neutrophils # (Auto) 9.1 TH/MM3 Lymphocytes # (Auto) 1.5 TH/MM3 Monocytes # (Auto) 0.5 TH/MM3 Eosinophils # (Auto) 0.1 TH/MM3 Basophils # (Auto) 0.1 TH/MM3 CBC Comment DIFF FINAL Differential Comment Prothrombin Time 10.3 SEC Prothromb Time International Ratio 0.9 RATIO Activated Partial Thromboplast Time 25.8 SEC Urine Color YELLOW Urine Turbidity CLEAR Urine pH 7.0 Urine Specific [place] 1.022 Urine Protein TRACE mg/dL Urine Glucose (UA) NEG mg/dL Urine Ketones 10 mg/dL Urine Occult Blood TRACE Urine Nitrite NEG Urine Bilirubin NEG Urine Urobilinogen LESS THAN 2.0 MG/DL Urine Leukocyte Esterase NEG Urine RBC 7 /hpf Urine WBC LESS THAN 1 /hpf Urine Squamous Epithelial Cells <1 /hpf Urine Bacteria RARE /hpf Urine Mucus FEW /lpf Microscopic Urinalysis Comment CULT NOT INDICATED Blood Urea Nitrogen 10 MG/DL Creatinine 0.72 MG/DL Random Glucose 87 MG/DL Total Protein 8.4 GM/DL Albumin 4.4 GM/DL Calcium Level 8.8 MG/DL Alkaline Phosphatase 84 U/L Aspartate Amino Transf (AST/SGOT) 13 U/L Alanine Aminotransferase (ALT/SGPT) 25 U/L Total Bilirubin 0.3 MG/DL Sodium Level 137 MEQ/L Potassium Level 3.7 MEQ/L Chloride Level 105 MEQ/L Carbon Dioxide Level 23.0 MEQ/L Anion Gap 9 MEQ/L Estimat Glomerular Filtration Rate 92 ML/MIN Lipase 112 U/L Physical Examination HEENT: Normocephalic; atraumatic; no jaundice. CHEST: CTA CARDIAC: RRR ABDOMEN: Soft, nondistended, RUQ tenderness, mild; no hepatosplenomegaly; bowel sounds are present in all four quadrants. EXTREMITIES: No clubbing, cyanosis, or edema. SKIN: Normal; no rash; no jaundice. [employer]: No focal deficits; alert and oriented times three. (Sangeetha Espinal) Assessment and Plan Plan ASSESSMENT: - Recurrent biliary colic, cholelithiasis, and gb sludge. Pt with recurrent episodes over past few months. Lastest episode more severe and woke her up from her sleep early yesterday morning. WBC 11.2. GS following, on schedule for lap. kiera at 11am NPO. Zosyn. - Questionable partial distal CBD obstruction on US. Gallbladder US (08/18/17)--- -> Gallbladder sludge and cholelithiasis with slightly thickened gallbladder wall and mildly distended common bjile duct. No definite choledocholithiasis or intrahepatic ductal dilatation. Differential considerations include ampullary dysfunction versus early partial distal CBD obstruction. Consider HIDA scan to evaluate for cystic and common bile duct patency as clinically indicated. Very mild hepatomegaly. LFTs are normal. GI was consulted for further evaluation. MRCP (08/18/17)----> Cholelithiasis without common duct obstruction. LFTs unremarkable. Pain improved. No evidence of CBD obstruction, okay to proceed with lap. Kiera. - Leukocytosis, mild. Zosyn PLAN: - NPO - Zosyn - No indication of CBD obstruction on MRCP, okay to proceed with lap. kiera. No need for ERCP - GS following, on schedule for lap. kiera at 11am - GI will sign off, please reconsult as needed - Pt seen and examined by Dr. 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 MRCP showed no cholidocholithiasis. CHolecystectomy today. GI fu as needed. Thankyou (Nik Valenzuela MD) Sangeetha Espinal Aug 19, 2017 09:01 Nik Valenzuela MD Aug 19, 2017 12:52
[2017-08-19 12:00] VITALS: BP 98/56; PULSE 60; RESP 17; TEMP 97.4; O2SAT 99
[2017-08-19] MEDS ORDERED: LACTATED RINGER'S 1000 ML INJ 1,000 ML IV ONE (12:00)
[2017-08-19] MEDS ORDERED: NEOSTIGMINE 3 MG/3 ML SYR IV ONE (12:00)
[2017-08-19] MEDS ORDERED: GLYCOPYRROLATE 1 MG/5 ML SYRINGE IV PUSH ONE (12:00)
[2017-08-19] MEDS ORDERED: PROPOFOL 200 MG/20 ML AMP IV ONE (12:00)
[2017-08-19] MEDS ORDERED: ONDANSETRON HCL 4 MG/2 ML VIAL IV PUSH ONE (12:00)
[2017-08-19] MEDS ORDERED: LIDOCAINE HCL 1% PF 5 ML AMPULE OTHER ONE (12:00)
[2017-08-19] MEDS ORDERED: ROCURONIUM INJ 50 MG/5 ML SYRINGE IV PUSH ONE (12:00)
[2017-08-19] MEDS ORDERED: MIDAZOLAM HCL 2 MG/2 ML VIAL IV ONE (12:00)
[2017-08-19] MEDS ORDERED: DEXAMETHASONE SOD PHOS 4 MG/ML VIAL IV ONE (12:00)
[2017-08-19] MEDS ORDERED: BUPIVACAINE/EPINEPHRINE 0.25% 50 ML VIAL ONE (14:41)
[2017-08-19] MEDS ORDERED: FAMOTIDINE 20 MG/2 ML VIAL ONE (15:00)
[2017-08-19] MEDS ORDERED: ACETAMINOPHEN 1000 MG/100 ML 100 ML IV ONE (15:01)
[2017-08-19] MEDS ORDERED: NORC5TAB PO (16:20)
--- NOTE | 2017-08-19 16:27 | PD.OP ---
cc: Tesfaye Ruiz MD Operative Report Date of Surgery: Aug 19, 2017 Preoperative Diagnosis: (1) Acute cholecystitis Postoperative Diagnosis: (1) Acute cholecystitis Procedure: Laparoscopic cholecystectomy Anesthesia: GETA Surgeon: Tesfaye Ruiz Coil Assembler(s): Yugn ALBARRANII Operation and Findings: Complications: None apparent EBL: 10 cc Operative findings: Inflamed and edematous gallbladder with gallstones Procedure in detail: The patient was taken to the operating room and placed in the supine position. General endotracheal anesthesia was induced. The abdomen was prepped and draped in usual sterile fashion and a surgical timeout was performed to verify correct patient procedure and site. Appropriate perioperative antibiotics were administered. Local anesthetic was injected in the skin and subcutaneous tissue superior to the umbilicus and a 5 mm incision performed. The abdomen was entered using the Optiview 5 mm trocar with direct laparoscopic visualization. The abdomen was then insufflated to 15 mmHg with CO2 gas which the patient tolerated well. Next a 12 mm port was placed in the epigastrium and one 5 mm in the epigastrium and one 5 mm in the right lateral abdomen. The patient was placed in reverse Trendelenburg position and turned slightly to the left. Attention was turned to the right upper quadrant and the dome of the gallbladder was grasped and retracted cephalad. The infundibulum was retracted laterally to expose Calot's triangle. Blunt dissection and judicious use of electrocautery was used to expose the cystic duct and the cystic artery directly entering the gallbladder. Two clips were placed proximally on each of these structures and one distally and they were transected. The gallbladder was then removed from the liver bed using electrocautery. Hemostasis was achieved. The gallbladder was then removed from the abdomen using an Endo Catch bag. The clips were in place on the cystic duct and cystic artery stumps with no bleeding or bile leakage. At this point, the abdomen was allowed to desufflate and trochars were removed. The fascia at the 12 mm port site was closed with 0 Vicryl suture. Skin was closed with subcuticular 4-0 Monocryl as well as Dermabond. The patient tolerated the procedure well and was extubated and taken to PACU in stable condition. All sponge and instrument counts were correct. Tesfaye Ruiz MD Aug 19, 2017 16:27
[2017-08-19] MEDS ORDERED: ACETAMINOPHEN/HYDROcodone 325 MG/5 MG TAB PO PRN ×2 (16:30)
[2017-08-19] MEDS ORDERED: SUGAMMADEX SODIUM 200 MG/2 ML VIAL IV PUSH ONE ×2 (16:56)
[2017-08-19] MEDS ORDERED: *morphine SULFATE 8 MG/ML PERIprocedure ONLY ONE ×3 (17:25→17:52)
[2017-08-19] MEDS ORDERED: DO NOT ADM ANY ANTICOAGULANT DRUGS PRN (17:30)
[2017-08-19 18:21] VITALS: BP 109/63; PULSE 76; RESP 16; TEMP 95.5; O2SAT 96
[2017-08-19] MEDS ORDERED: MORPHINE SULFATE 2 MG/ML INJ IV PUSH PRN (19:00)
[2017-08-19 20:42] VITALS: RESP 18
== END 2017-08-19 21:45 | disposition home or self-care (01) | DRG 419 ==
LOC: NEPE 14:53 → NEDA 17:51 → N07B 19:03
PROVIDERS: ADMIT Internal Medicine; ATTEND Internal Medicine
PROC: 0FT44ZZ Resection of Gallbladder, Percutaneous Endoscopic Approach (ICD-10-PCS; principal; 2017-08-19 15:08)
DX: K80.01 Calculus of gallbladder with acute cholecystitis with obstruction (principal); Z87.891 Personal history of nicotine dependence
CPT/HCPCS: 74181; 76377; 76705; 80053; 81001; 83690; 84703; 85025; 85610; 85730; 88304; 96361; 96374; 96375; J0131; J1100; J2250; J2270; J2405; J2543; J2710; J3010; J7030; J7120